=== PATIENT | female | born 1985 | race Caucasian/White ===

== ENCOUNTER 2016-09-03 08:07 | Emergency (ER) | payer MEDICAID ==
[~2016-09-03] VITALS: Ht 165.1 cm; Wt 65.0 kg
[~2016-09-03 08:07] MED LIST: MULT-65 PO; ZOFR4TAB3 SL
[2016-09-03 08:08] VITALS: BP 116/64; PULSE 92; RESP 16; TEMP 98.7; O2SAT 98
--- NOTE | 2016-09-03 09:01 | PD ---
HPI Chief Complaint: ENT Complaint Time Seen by Provider: 08:50 Travel History International Travel<30 days: No Contact w/Intl Traveler<30days: No Traveled to known affect area: No History of Present Illness HPI 31-year-old female presents to the emergency Department with complaint of sore throat 3 days. Denies lump in throat, difficulty swallowing, unusual drooling. Reports painful swallowing. Denies cough, nasal congestion. Reports bilateral ear pain. Reports headache. Denies body aches. Denies abdominal pain, nausea, vomiting. Reports feeling cold chills but denies fever. She has taken her temperature and says that she has been afebrile. She also states that she has been taking ibuprofen and Tylenol so doesn't know if she may have fever which has been being kept down with the medications. Has been taking Tylenol and ibuprofen with no relief in symptoms. No one else with similar symptoms. No known allergies. No other modifying factors or associated signs and symptoms. PFSH Past Medical History Diminished Hearing: No ?: Unknown : 2 Para: 2 Ovarian Cysts: Yes Social History Alcohol Use: No Tobacco Use: Yes (1/2 PPD) Substance Use: No Allergies-Medications (Allergen,Severity, Reaction): Coded Allergies: No Known Allergies (Unverified , 09/03/16) Reported Meds & Prescriptions Reported Meds & Active Scripts Active Amoxicillin 500 Mg Cap 500 Mg PO BID 10 Days Magic Mouthwash Pediatric/Adult Liq (Lidocaine/Diphenhydr/Alum/Mg/Simeth) 60 Ml Susp 5 Ml SWISH-SWAL Q3HR PRN Each 5mL contains: Diphenydramine 4.5mg, Viscous Lidocaine 2% 10mg, Maalox Advanced Regular Strength 2.7ml Ibuprofen 800 Mg Tab 800 Mg PO Q6HR PRN Review of Systems Except as stated in HPI: all other systems reviewed are Neg Physical Exam Narrative GENERAL: Well-nourished, well-developed female patient, in no acute distress; afebrile, nontoxic-appearing SKIN: Warm and dry. No rash. HEAD: Atraumatic. Normocephalic. EYES: Pupils equal and round at 3 mm with brisk reaction. No scleral icterus. No injection or drainage. PERRLA. ENT: Mucosa pink and dry. Pharynx with 2+ tonsils; with erythema, exudate, and edema. No Uvular edema. No uvular, palatal, or tonsillar deviation. Airway patent. EARS: Bilateral pinnae and external canals appear within normal limits. Bilateral tympanic membranes without erythema, dullness or perforation.. NECK: Trachea midline. No Anterior cervical lymphadenopathy, but with tenderness on palpation. CARDIOVASCULAR: Regular rate and rhythm. No murmur appreciated. RESPIRATORY: No accessory muscle use. Clear to auscultation. Breath sounds equal bilaterally. GASTROINTESTINAL: Abdomen soft, non-tender, nondistended. Hepatic and splenic margins not palpable. Bowel sounds are active 4 quadrants. MUSCULOSKELETAL: No obvious deformities. No clubbing. No cyanosis. No edema. NEUROLOGICAL: Awake and alert. Oriented 3. No obvious cranial nerve deficits. Motor grossly within normal limits. Normal speech. Moves all extremities. PSYCHIATRIC: Appropriate mood and affect; insight and judgment normal. Data Data Last Documented VS Vital Signs Date Time Temp Pulse Resp B/P Pulse Ox O2 Delivery O2 Flow Rate FiO2 09/03/16 08:08 98.7 92 16 116/64 98 Room Air Orders Group A Rapid Strep Screen (09/03/16 08:37) Influenzae A/B Antigen (09/03/16 08:47) Strep Culture (Group A) (09/03/16 08:45) MDM Medical Decision Making Medical Screen Exam Complete: Yes Emergency Medical Condition: Yes Medical Record Reviewed: Yes Differential Diagnosis Exudative pharyngitis, strep pharyngitis, viral pharyngitis, otitis media, sinusitis, less likely peritonsillar abscess Narrative Course 31-year-old female physical exam consistent with exudative pharyngitis. The patient a nonnarcotic ball in the ER and she declined. Rapid strep and influenza ordered. Rapid strep and influenza are negative. I will treat the patient with antibiotics for exudative pharyngitis secondary to physical exam findings. Amoxicillin, ibuprofen, Magic mouthwash prescribed for home. Patient verbalizes understanding and agreement with treatment plan. Patient is medically cleared and stable for discharge. Discussed reasons to return to the emergency department. Instructed patient to follow up with primary care provider. Patient agrees with treatment plan. The patients vital signs are stable and the patient is stable for outpatient follow-up and treatment. Patient discharged home, stable and in no acute distress. Diagnosis Primary Impression: Exudative pharyngitis Referrals: Primary Care Physician Patient Instructions: General Instructions, Pharyngitis (ED), Safe Use of Cough and Cold Medicines (ED) Departure Forms: Tests/Procedures, Work Release Enter return to work date: Sep 05, 2016 Additional Instructions: Take Antibiotics as prescribed and complete full course of antibiotics Get plenty of sleep/rest Rest your voice Drink plenty of fluids to prevent dehydration Use warm saltwater gargles to soothe throat pain Use an air humidifier/turn off ceiling fans Use throat lozenges as needed for sore throat Use ibuprofen or acetaminophen as needed to relieve pain and fever Follow-up with your primary care provider within 2-4 days Return immediately to the emergency department for worsening of symptoms Med/Other Pt SpecificInfo: Prescription(s) given Scripts Amoxicillin 500 Mg [id number] Mg PO BID 10 Days Ref 0 Prov:Isis Johnston 09/03/16 Haaicmghusnarfl-Eumpajdrd-Aff-Alum-Simeth Liq (Magic Mouthwash Pediatric/Adult Liq)60 Ml Susp5 Ml SWISH-SWAL Q3HR PRN (SORE THROAT) #60 ML Ref 0 Each 5mL contains: Diphenydramine 4.5mg, Viscous Lidocaine 2% 10mg, Maalox Advanced Regular Strength 2.7ml Prov:Isis Johnston 09/03/16 Ibuprofen 800 Mg [id number] Mg PO Q6HR PRN (PAIN) #30 TAB Ref 0 Prov:Isis Johnston 09/03/16 Disposition: 01 DISCHARGE HOME Condition: Stable Isis Johnston Sep 03, 2016 09:00
[2016-09-03] MEDS ORDERED: IBUP800T23 PO (09:49)
[2016-09-03] MEDS ORDERED: AMOX500C PO (09:49)
[2016-09-03] MEDS ORDERED: MAGICPED SWISH-SWAL (09:49)
== END 2016-09-03 10:06 | disposition home or self-care (01) ==
LOC: NEPB 08:07
DX: J02.9 Acute pharyngitis, unspecified (principal); H92.03 Otalgia, bilateral; F17.200 Nicotine dependence, unspecified, uncomplicated
CPT/HCPCS: 87081; 87804; 87880; 99283

== ENCOUNTER 2016-11-09 18:54 | Emergency (ER) | payer MEDICAID ==
[~2016-11-09] VITALS: Ht 165.1 cm; Wt 65.0 kg
[~2016-11-09 18:54] MED LIST changes: +AMOX500C PO; +IBUP800T23 PO; +MAGICPED SWISH-SWAL; -MULT-65 PO; -ZOFR4TAB3 SL
[2016-11-09 18:59] VITALS: BP 119/69; PULSE 90; RESP 16; TEMP 98.4; O2SAT 98
[2016-11-09] MEDS ORDERED: SODIUM CHLOR 0.9% 1000 ML INJ 1,000 ML IV SCH (19:31)
--- NOTE | 2016-11-09 19:36 | PD ---
HPI Chief Complaint: GI Complaint Time Seen by Provider: 19:27 Travel History International Travel<30 days: No Contact w/Intl Traveler<30days: No Traveled to known affect area: No History of Present Illness HPI 31-year-old female complains of abdominal cramping with nausea vomiting. Patient states the symptoms started last night. Patient states the abdominal pain is cramping pain localized around the epigastric area. Patient denies any pain radiation. Patient denies any headache. Patient denies any chest pain or shortness of breath. Patient denies any dysuria or frequency. Patient denies any vaginal discharge or bleeding. PFSH Past Medical History Diminished Hearing: No : 2 Para: 2 Ovarian Cysts: Yes Social History Alcohol Use: No Tobacco Use: Yes (/ PPD) Substance Use: No Allergies-Medications (Allergen,Severity, Reaction): Coded Allergies: No Known Allergies (Unverified , 11/09/16) Reported Meds & Prescriptions Reported Meds & Active Scripts Active No Active Prescriptions or Reported Medications Review of Systems General / Constitutional: No: Fever Eyes: No: Visual changes HENT: No: Headaches Cardiovascular: No: Chest Pain or Discomfort Respiratory: No: Shortness of Breath Gastrointestinal: Positive: Nausea, Vomiting, Abdominal Pain Genitourinary: No: Dysuria Musculoskeletal: No: Pain Skin: No Rash Neurologic: No: Weakness Psychiatric: No: Depression Endocrine: No: Polydipsia Hematologic/Lymphatic: No: Easy Bruising Physical Exam Narrative GENERAL: Well-nourished, well-developed patient. SKIN: Focused skin assessment warm/dry. HEAD: Normocephalic. EYES: No scleral icterus. No injection or drainage. NECK: Supple, trachea midline. No JVD or lymphadenopathy. CARDIOVASCULAR: Regular rate and rhythm without murmurs, gallops, or rubs. RESPIRATORY: Breath sounds equal bilaterally. No accessory muscle use. GASTROINTESTINAL: Abdomen soft, nondistended. Mild tenderness on palpation epigastric area. No rebound tenderness. No mass. MUSCULOSKELETAL: No cyanosis, or edema. BACK: Nontender without obvious deformity. No CVA tenderness. Neurologic exam normal. Data Data Last Documented VS Vital Signs Date Time Temp Pulse Resp B/P Pulse Ox O2 Delivery O2 Flow Rate FiO2 11/09/16 18:59 98.4 90 16 119/69 98 Room Air Orders Complete Blood Count With Diff (11/09/16 19:31) Comprehensive Metabolic Panel (11/09/16 19:31) Lipase (11/09/16 19:31) Iv Access Insert/Monitor (11/09/16 19:31) Ecg Monitoring (11/09/16 19:31) Oximetry (11/09/16 19:31) Ondansetron Inj (Zofran Inj) (11/09/16 19:45) Sodium Chlor 0.9% 1000 Ml Inj (Ns 1000 M (11/09/16 19:31) Ed Urine Pregnancytest Poc (11/09/16 19:31) Urinalysis - C+S If Indicated (11/09/16 19:37) Metoclopramide Inj (Reglan Inj) (11/09/16 21:00) Diphenhydramine Inj (Benadryl Inj) (11/09/16 21:00) Labs Laboratory Tests Test 11/09/16 19:45 White Blood Count 15.5 TH/MM3 Red Blood Count 4.67 MIL/MM3 Hemoglobin 14.8 GM/DL Hematocrit 42.8 % Mean Corpuscular Volume 91.6 FL Mean Corpuscular Hemoglobin 31.6 PG Mean Corpuscular Hemoglobin 34.5 % Concent Red Cell Distribution Width 14.4 % Platelet Count 201 TH/MM3 Mean Platelet Volume 8.5 FL Neutrophils (%) (Auto) 92.4 % Lymphocytes (%) (Auto) 3.0 % Monocytes (%) (Auto) 4.1 % Eosinophils (%) (Auto) 0.4 % Basophils (%) (Auto) 0.1 % Neutrophils # (Auto) 14.3 TH/MM3 Lymphocytes # (Auto) 0.5 TH/MM3 Monocytes # (Auto) 0.6 TH/MM3 Eosinophils # (Auto) 0.1 TH/MM3 Basophils # (Auto) 0.0 TH/MM3 CBC Comment DIFF FINAL Differential Comment Sodium Level 138 MEQ/L Potassium Level 3.8 MEQ/L Chloride Level 104 MEQ/L Carbon Dioxide Level 23.6 MEQ/L Anion Gap 10 MEQ/L Blood Urea Nitrogen 20 MG/DL Creatinine 0.94 MG/DL Estimat Glomerular Filtration 69 ML/MIN Rate Random Glucose 98 MG/DL Calcium Level 8.9 MG/DL Total Bilirubin 0.5 MG/DL Aspartate Amino Transf 14 U/L (AST/SGOT) Alanine Aminotransferase 20 U/L (ALT/SGPT) Alkaline Phosphatase 45 U/L Total Protein 7.8 GM/DL Albumin 4.1 GM/DL Lipase 159 U/L MDM Medical Decision Making Medical Screen Exam Complete: Yes Emergency Medical Condition: Yes Interpretation(s) CBC WBC 15.5. 92 neutrophil. Differential Diagnosis Differential diagnosis including gastroenteritis, gastritis, PUD, pancreatitis, cholecystitis, colitis, UTI, pyelonephritis, nephrolithiasis. Narrative Course 31-year-old female with epigastric abdominal pain, nausea vomiting. Normal saline solution 1 L IV bolus. Zofran 4 mg IV. Diagnosis Primary Impression: Gastroenteritis Patient Instructions: General Instructions Additional Instructions: Zofran and Phenergan as needed for nausea vomiting. Clear fluids for 24 hours and advance as tolerated. Follow-up with personal physician. Return if persistent problem or worse. Med/Other Pt SpecificInfo: Prescription(s) given Scripts Ondansetron Odt (Zofran Odt)4 Mg Tab4 Mg SL Q6HR PRN (Nausea/Vomiting) #10 TAB Ref 0 Prov:Giorgio Rojas MD 11/09/16 Promethazine (Phenergan)25 Mg [id number] Mg PO Q6H PRN (NAUSEA OR VOMITING) #10 TAB Ref 0 Prov:Giorgio Rojas MD 11/09/16 Disposition: 01 DISCHARGE HOME Condition: Stable Giorgio Rojas MD November 09, 2016 19:36
[2016-11-09] MEDS ORDERED: ONDANSETRON HCL 4 MG/2 ML VIAL IVP ONE (19:45)
[2016-11-09 20:45] LABS: AUTOMATED NEUTROPHIL # 14.3 TH/MM3 (1.8-7.7); BASOPHIL % 0.1 % (0.0-2.0); EOSINOPHIL # 0.1 TH/MM3 (0-0.4); EOSINOPHIL % 0.4 % (0.0-4.0); HEMATOCRIT 42.8 % (35.0-46.0); HEMO FLAGS DIFF FINAL; LYMPHOCYTE # 0.5 TH/MM3 (1.0-4.8); MEAN CELL VOLUME 91.6 FL (80.0-100.0); MEAN CORPUSCULAR HEMOGLOBIN 31.6 PG (27.0-34.0); MEAN CORPUSCULAR HGB CONC 34.5 % (32.0-36.0); MONO % 4.1 % (0.0-8.0); NEUT % 92.4 % (16.0-70.0); PLATELET COUNT 201 TH/MM3 (150-450); RED BLOOD COUNT 4.67 MIL/MM3 (4.00-5.30); RED CELL DISTRIBUTION WIDTH 14.4 % (11.6-17.2); WHITE BLOOD COUNT 15.5 TH/MM3 (4.0-11.0)
[2016-11-09] MEDS ORDERED: METOCLOPRAMIDE HCL 10 MG/2 ML VIAL IV PUSH ONE (21:00)
[2016-11-09] MEDS ORDERED: diphenhydrAMINE HCL 50 MG/ML VIAL IV PUSH ONE (21:00)
[2016-11-09 21:04] LABS: ANION GAP 10 MEQ/L (5-15); BICARBONATE 23.6 MEQ/L (21.0-32.0); BLOOD UREA NITROGEN 20 MG/DL (7-18); CHLORIDE 104 MEQ/L (98-107); GLOMERULAR FILTRATION RATE 69 ML/MIN (>89); POTASSIUM 3.8 MEQ/L (3.5-5.1); SODIUM (NA) 138 MEQ/L (136-145)
[2016-11-09 21:08] LABS: ALKALINE PHOSPHATASE 45 U/L (45-117); ALT (GPT) 20 U/L (10-53); AST (GOT) 14 U/L (15-37); TOTAL BILIRUBIN ADULT 0.5 MG/DL (0.2-1.0)
[2016-11-09] MEDS ORDERED: PROM25TA10 PO (21:18)
[2016-11-09] MEDS ORDERED: ZOFR4TAB3 SL (21:18)
[2016-11-09 21:27] VITALS: BP 115/59; PULSE 85; RESP 17; O2SAT 100
[2016-11-09 21:31] LABS: BLOOD, URINE NEG (NEG); COMMENT (UR) CULT NOT INDICATED; CULTURE IF INDICATED CULT NOT INDICATED; GLUCOSE,URINE NEG (NEG); KETONE, URINE 10 mg/dL (NEG); MUCUS URINE FEW /lpf (OCC); NITRITE,URINE NEG (NEG); SQUAMOUS EPITHELIAL CELL URINE 4 /hpf (0-5); URINE COLOR YELLOW (YELLW/STRAW)
== END 2016-11-09 21:56 | disposition home or self-care (01) ==
LOC: NEPD 18:54
DX: K52.9 Noninfective gastroenteritis and colitis, unspecified (principal); F17.200 Nicotine dependence, unspecified, uncomplicated
CPT/HCPCS: 80053; 81001; 83690; 84703; 85025; 96361; 96374; 96375; 99284; J1200; J2405; J2765; J7030

== ENCOUNTER 2017-02-23 10:09 | Emergency (ER) | payer MEDICAID ==
[~2017-02-23] VITALS: Ht 165.1 cm; Wt 70.0 kg
[~2017-02-23 10:09] MED LIST changes: -AMOX500C PO; -IBUP800T23 PO; -MAGICPED SWISH-SWAL; +PROM25TA10 PO; +ZOFR4TAB3 SL
[2017-02-23 10:10] VITALS: BP 117/68; PULSE 85; RESP 15; TEMP 98.2; O2SAT 98
[2017-02-23] MEDS ORDERED: CIPR500T2 PO (10:39)
[2017-02-23] MEDS ORDERED: BACT800T5 PO (10:39)
--- NOTE | 2017-02-23 10:39 | PD ---
HPI Chief Complaint: Injury Time Seen by Provider: 10:29 Travel History International Travel<30 days: No Contact w/Intl Traveler<30days: No Traveled to known affect area: No History of Present Illness HPI 31-year-old female presents to the emergency Department with complaint of a puncture wound to the bottom of her right third toe from a nail that she stepped on last night. Is not up-to-date on her tetanus vaccination. Reports area is painful. Reports redness to the dorsal aspect of her foot. Denies fever, vomiting. Denies loss of sensation, decreased range of motion, decreased strength to the affected foot. The affected extremity. Has been taking ibuprofen for symptom management. Symptoms are moderate in severity. Has no other medical complaints. No known allergies. No other modifying factors or associated signs and symptoms. PFSH Past Medical History Diminished Hearing: No ?: Not LMP: 02/17/17 : 2 Para: 2 Ovarian Cysts: Yes Social History Alcohol Use: No Tobacco Use: Yes (/2 PPD) Substance Use: No Allergies-Medications (Allergen,Severity, Reaction): Coded Allergies: No Known Allergies (Unverified , 02/23/17) Reported Meds & Prescriptions Reported Meds & Active Scripts Active Bactrim DS (Sulfamethoxazole-Trimethoprim) 800-160 Mg Tab 1 Tab PO BID 10 Days Ciprofloxacin (Ciprofloxacin HCl) 500 Mg Tab 500 Mg PO BID 10 Days Zofran Odt (Ondansetron Odt) 4 Mg Tab 4 Mg SL Q6HR PRN Phenergan (Promethazine HCl) 25 Mg Tablet 25 Mg PO Q6H PRN Review of Systems Except as stated in HPI: all other systems reviewed are Neg Physical Exam Narrative GENERAL: Well-nourished, well-developed female patient, in no acute distress; afebrile, nontoxic-appearing SKIN: Warm and dry. Puncture wound noted to the plantar aspect of the right third toe; toe is edematous; an area of erythema, consistent with cellulitis, noted to the dorsal aspect of the right foot; 2+ pedal pulse; sensory intact; foot is tender to palpation. Right lower exudate someone onto the 2+ radial pulses and sensory intact. HEAD: Atraumatic. Normocephalic. EYES: Pupils equal and round. No scleral icterus. No injection or drainage. ENT: Mucosa pink and moist. Airway patent. NECK: Trachea midline. CARDIOVASCULAR: Regular rate. RESPIRATORY: No accessory muscle use. GASTROINTESTINAL: Flat. MUSCULOSKELETAL: No obvious deformities. No clubbing. No cyanosis. No edema. NEUROLOGICAL: Awake and alert. Oriented 3. No obvious cranial nerve deficits. Motor grossly within normal limits. Normal speech. PSYCHIATRIC: Appropriate mood and affect; insight and judgment normal. Data Data Last Documented VS Vital Signs Date Time Temp Pulse Resp B/P (MAP) Pulse Ox O2 Delivery O2 Flow Rate FiO2 02/23/17 11:53 02/23/17 10:10 98.2 85 15 98 Orders Orders Foot, Complete (Koj2tdx) (02/23/17 10:39) Tetanus/Diphtheria Tox Adult (Tetanus/Di (02/23/17 10:45) Ciprofloxacin (Cipro) (02/23/17 10:45) Sulfamet-Trimeth Ds 800-160 Mg (Bactrim (02/23/17 10:45) MDM Medical Decision Making Medical Screen Exam Complete: Yes Emergency Medical Condition: Yes Medical Record Reviewed: Yes Differential Diagnosis Infected puncture wound, osteomyelitis, tetanus update Narrative Course 31-year-old female with an infected puncture wound from a nail to the plantar aspect of her right third toe. She does have cellulitis noted to the dorsal aspect of the right foot. Patient is afebrile and nontoxic-appearing. She denies fever, vomiting. Tetanus updated in the ER. First dose of ciprofloxacin and Bactrim administered in the ER. Right foot x-ray ordered to rule out osteomyelitis and foreign body. 1146: Right foot x-ray with no acute findings. Ciprofloxacin and Bactrim filled filled in the inpatient pharmacy and supplied for home. Instructed patient to follow up with primary care provider. Patient verbalizes understanding and agreement with treatment plan. Patient is medically cleared and stable for discharge. Discussed reasons to return to the emergency department. Patient agrees with treatment plan. The patients vital signs are stable and the patient is stable for outpatient follow-up and treatment. Patient discharged home, stable and in no acute distress. Diagnosis Primary Impression: Puncture wound of third toe, right Qualified Codes: S91.134A - Puncture wound without foreign body of right lesser toe(s) without damage to nail, initial encounter Additional Impression: Cellulitis of right foot Referrals: [facility] Primary Care Physician Patient Instructions: Cellulitis (ED), General Instructions, Puncture Wound (ED ) Departure Forms: Tests/Procedures, Work Release Enter return to work date: Feb 26, 2017 Additional Instructions: Antibiotics as prescribed and take until they are gone Keep area clean and dry Avoid aggravating activity Follow-up with primary care provider Return to the emergency department immediately with worsening of symptoms Med/Other Pt SpecificInfo: Prescription(s) given Scripts Sulfamethoxazole-Trimethoprim (Bactrim DS) 800-160 Mg Tab 1 TAB PO BID for Infection for 10 Days, TAB 0 Refills Prov: Isis Johnston 02/23/17 Ciprofloxacin (Ciprofloxacin) 500 Mg Tab 500 MG PO BID for Infection for 10 Days, TAB 0 Refills Prov: Isis Johnston 02/23/17 Disposition: 01 DISCHARGE HOME Condition: Stable Isis Johnston Feb 23, 2017 10:39
[2017-02-23] MEDS ORDERED: TETANUS/DIPHTHERIA TOXOID ADULT 0.5 ML VIAL IM ONE (10:45)
[2017-02-23] MEDS ORDERED: SULFAMETHOXAZOLE-TRIMETHOPRIM DS 800-160 MG TAB PO ONE (10:45)
[2017-02-23] MEDS ORDERED: CIPROFLOXACIN 500 MG TAB PO ONE (10:45)
--- NOTE | 2017-02-23 11:13 | RADRPT ---
EXAM DATE/TIME: 02/23/2017 10:59 [facility] COMPARISON: No previous studies available for comparison. INDICATIONS : Possible foreign body in right foot at base of third toe. Stepped on nail. MEDICAL HISTORY : None. SURGICAL HISTORY : None. ENCOUNTER: Initial ACUITY: 1 day PAIN SCORE: 6/10 LOCATION: Right third toe FINDINGS: Three view examination of the right foot demonstrates no soft tissue swelling, dislocation, or fractu re. The tarsal bones appear intact. The interphalangeal and metatarsophalangeal joints are intact. The calcaneus is intact. Bony mineralization is normal. There is no evidence of radiopaque foreign body. CONCLUSION: No evidence of radiopaque foreign body. Intact bony and soft tissue structures. Benjamin Bradley MD on February 23, 2017 at 11:08 Board Certified Radiologist. This report was verified electronically.
== END 2017-02-23 11:53 | disposition home or self-care (01) ==
LOC: NEPK 10:09
DX: S91.134A Puncture wound without foreign body of right lesser toe(s) without damage to nail, initial encounter (principal); L03.115 Cellulitis of right lower limb; F17.200 Nicotine dependence, unspecified, uncomplicated; W22.8XXA Striking against or struck by other objects, initial encounter; Z23 Encounter for immunization; Z79.899 Other long term (current) drug therapy
CPT/HCPCS: 73630; 90471; 90714

== ENCOUNTER 2017-11-07 20:57 | Emergency (ER) | payer MEDICAID ==
[~2017-11-07] VITALS: Ht 165.1 cm; Wt 60.0 kg
[~2017-11-07 20:57] MED LIST changes: +BACT800T5 PO; +CIPR500T2 PO
[2017-11-07 21:21] VITALS: BP 100/58; PULSE 74; RESP 18; TEMP 97.9; O2SAT 100
--- NOTE | 2017-11-07 23:06 | PD ---
HPI Chief Complaint: Abdominal Pain Time Seen by Provider: 22:58 Travel History International Travel<30 days: No Contact w/Intl Traveler<30days: No Traveled to known affect area: No History of Present Illness HPI The patient was seen and examined in the presence of the nurse. This patient complains of pelvic pain. Location is bilateral lower quadrant. Duration 2 days. Severity is moderate. She denies vaginal bleeding or discharge. She has history of ovarian cystic disease. She is actively trying to get and has missed one menstrual period. No alleviating factors. She has had no fever or urinary complaints. No exacerbating factors. She also complains about an inflamed skin lesion over the upper part of her sternum. PFSH Past Medical History Diminished Hearing: No Reproductive: Yes (ovarian cyst) Tetanus Vaccination: < 5 Years Influenza Vaccination: No ?: Unknown LMP: 09/26/2017 : 2 Para: 2 Ovarian Cysts: Yes Past Surgical History Surgical History: No Previous Surgery Social History Alcohol Use: No Tobacco Use: Yes (1/2 PPD) Substance Use: No Allergies-Medications (Allergen,Severity, Reaction): Coded Allergies: No Known Allergies (Unverified Adverse Reaction, Unknown, 11/07/17) Reported Meds & Prescriptions Reported Meds & Active Scripts Active Review of Systems General / Constitutional: No: Fever Eyes: No: Visual changes HENT: No: Headaches Cardiovascular: No: Chest Pain or Discomfort Respiratory: No: Shortness of Breath Gastrointestinal: Positive: Abdominal Pain Genitourinary: Positive: Pelvic Pain, No: Dysuria Musculoskeletal: No: Pain Skin: No Rash Neurologic: No: Weakness Psychiatric: No: Depression Endocrine: No: Polydipsia Hematologic/Lymphatic: No: Easy Bruising Physical Exam Narrative GENERAL: Well-nourished, well-developed patient in no apparent distress. SKIN: Focused skin assessment reveals no rash and nodules. Skin is Warm and dry. Has an epidermoid cyst over the upper part of the sternum. No infection present HEAD: Atraumatic. Normocephalic. EYES: Pupils equal and round. No scleral icterus. No injection or drainage. ENT: No nasal bleeding or discharge. Mucous membranes pink and moist. NECK: Trachea midline. No JVD. CARDIOVASCULAR: Regular rate and rhythm. No murmur appreciated. RESPIRATORY: No accessory muscle use. Clear to auscultation. Breath sounds equal bilaterally. GASTROINTESTINAL: Abdomen soft, non-tender, nondistended. Hepatic and splenic margins not palpable. MUSCULOSKELETAL: No obvious deformities. No clubbing. No cyanosis. No edema. NEUROLOGICAL: Awake and alert. No obvious cranial nerve deficits. Motor grossly within normal limits. Normal speech. PSYCHIATRIC: Appropriate mood and affect; insight and judgment normal. Pelvic: Data Data Last Documented VS Vital Signs Date Time Temp Pulse Resp B/P (MAP) Pulse Ox O2 Delivery O2 Flow Rate FiO2 11/07/17 21:21 97.9 74 18 100/58 (72) 100 Orders Orders Ed Urine Pregnancytest Poc (11/07/17 23:03) MDM Medical Decision Making Medical Screen Exam Complete: Yes Emergency Medical Condition: Yes Medical Record Reviewed: Yes Differential Diagnosis Differential diagnosis includes PID, ectopic , ovarian cyst, ovarian torsion, endometriosis. Narrative Course I have reviewed the patient's electronic medical record. Urine is negative Skin lesion on her anterior chest she complains about is an epidermoid cyst. It is not infected. Nothing emergent needs to be done about that. No evidence of PID. 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 This pelvic pain is nonspecific. Diagnosis Primary Impression: Acute pelvic pain, female Additional Instructions: Follow-up with ADULT PROBATION OFFICER Med/Other Pt SpecificInfo: Other Disposition: 01 DISCHARGE HOME Condition: Stable Johny Washington MD November 07, 2017 23:06
== END 2017-11-08 00:49 | disposition home or self-care (01) ==
LOC: NEPD 20:57
DX: R10.2 Pelvic and perineal pain (principal); F17.200 Nicotine dependence, unspecified, uncomplicated
CPT/HCPCS: 84703; 99282